=== PATIENT | female | born 1980 | race African-American/Black ===

== ENCOUNTER 2016-05-24 05:53 | Inpatient (IN) | payer BC, OTHER ==
[2016-05-24] VITALS (22 sets, daily range): BP systolic 108–148; RESP 14–25; TEMP 97.3–98.4; Ht 167.6 cm; Wt 97.5 kg
[~2016-05-24] VITALS: Ht 167.6 cm; Wt 97.5 kg
[~2016-05-24 05:53] MED LIST: CEFAZOLIN (LD/OB) 100 ML IV ONE; FAMOTIDINE 20 MG INJ IV ONE; LIDOCAINE 1% BUFFERED 1 ML SYR INTRADERM PRN; METOCLOPRAMIDE 10 MG/2 ML VIAL IV PUSH ONE
[2016-05-24] MEDS ORDERED: METOCLOPRAMIDE 10 MG/2 ML VIAL ONE ×2 (06:15→06:59)
[2016-05-24] MEDS ORDERED: FAMOTIDINE 20 MG INJ ONE ×2 (06:16→06:59)
[2016-05-24] MEDS ORDERED: CEFAZOLIN (LD/OB) 0 ML IV ONE (06:16)
[2016-05-24] MEDS: LACT RINGERS 1,000 ML IV SCH (06:21)
[2016-05-24] MEDS ORDERED: CEFAZOLIN (LD/OB) 100 ML IV ONE (07:00)
[2016-05-24] MEDS ORDERED: DIPHENHYDRAMINE 50 MG/ML VIAL IV PRN (07:45)
[2016-05-24] MEDS ORDERED: SALINE FLUSH 10 ML FLUSH PRN ×2 (07:45→08:50)
[2016-05-24] MEDS ORDERED: MEPERIDINE 25 MG/ML IV PRN (07:45)
[2016-05-24] MEDS ORDERED: PROMETHAZINE 25 MG/ML VIAL IV PRN (07:45)
[2016-05-24] MEDS ORDERED: BUTORPHANOL 1 MG/ML VIAL IV PRN (07:45)
[2016-05-24] MEDS ORDERED: DILAUDID 1 MG/ML AMP IV PRN (07:45)
[2016-05-24] MEDS ORDERED: ONDANSETRON 4 MG VIAL IV PRN ×3 (07:45→08:50)
[2016-05-24] MEDS ORDERED: NALOXONE 0.4 MG/ML AMP IV PRN (07:45)
[2016-05-24] MEDS ORDERED: MORPHINE 2 MG/ML SYR IV PRN ×2 (07:45)
[2016-05-24] MEDS ORDERED: MORPHINE 4 MG/ML SYR IV PRN ×2 (07:45)
[2016-05-24] MEDS ORDERED: OXYCODONE 5 MG TAB PO PRN (07:45)
[2016-05-24] MEDS ORDERED: TDaP 0.5 ML VIAL IM.VACC ONE (08:50)
[2016-05-24] MEDS ORDERED: MEASLES,MUMPS,RUBELLA VAC SUBQ.VACC ONE (08:50)
[2016-05-24] MEDS ORDERED: LACT RINGERS 1,000 ML IV SCH (08:50)
[2016-05-24] MEDS: KETOROLAC 30 MG/ML VIAL IV SCH ×2 (11:39→17:32)
[2016-05-24] MEDS: DOCUSATE SOD 100 MG CAP PO SCH (11:43)
[2016-05-24] MEDS ORDERED: OXYTOCIN 10 UNITS/ML VIAL IV ONE (14:00)
[2016-05-24] MEDS ORDERED: METOPROLOL 5 MG/5 ML VIAL IV ONE (14:00)
[2016-05-24] MEDS ORDERED: PHENYLEPHRINE 10 MG/ML VIAL IV ONE (14:00)
[2016-05-24] MEDS: SALINE FLUSH 10 ML FLUSH SCH ×2 (14:30→18:49)
[2016-05-24] MEDS: OXYTOCIN 15 UNITS/250 ML NS 250 ML IV SCH (20:15)
[2016-05-24] MEDS: MAG HYDROX 30 ML UDC PO PRN (21:48)
[2016-05-25] MEDS: KETOROLAC 30 MG/ML VIAL IV SCH ×2 (00:13→05:19)
[2016-05-25 01:21] VITALS: BP_SYST 136; RESP 16; TEMP 98.1
[2016-05-25] MEDS: LACT RINGERS 1,000 ML IV SCH (03:13)
[2016-05-25] MEDS: OXYTOCIN 15 UNITS/250 ML NS 250 ML IV SCH ×2 (03:14→07:02)
[2016-05-25 05:00] VITALS: BP_SYST 144; RESP 20; TEMP 98.1
[2016-05-25] MEDS: SODIUM CHLORIDE 0.9% FLUSH BAG 500 ML IV SCH (05:31)
[2016-05-25] MEDS ORDERED: SODIUM CHLORIDE 0.9% FLUSH BAG 500 ML IV SCH (06:00)
[2016-05-25] MEDS: SALINE FLUSH 10 ML FLUSH SCH ×3 (08:00→19:26)
[2016-05-25 09:07] VITALS: BP_SYST 138; TEMP 98.1
[2016-05-25 09:08] VITALS: RESP 16
[2016-05-25] MEDS: DOCUSATE SOD 100 MG CAP PO SCH (09:18)
[2016-05-25] MEDS: Ibuprofen 600 MG TAB PO SCH ×3 (12:07→23:54)
[2016-05-25] MEDS: MAG HYDROX 30 ML UDC PO PRN (12:10)
[2016-05-25 18:15] VITALS: BP_SYST 146; TEMP 98.4
[2016-05-25 18:16] VITALS: RESP 24
[2016-05-26 05:21] VITALS: BP_SYST 126; RESP 18; TEMP 98
[2016-05-26] MEDS: SODIUM CHLORIDE 0.9% FLUSH BAG 500 ML IV SCH (06:00)
[2016-05-26] MEDS: Ibuprofen 600 MG TAB PO SCH ×2 (06:04→12:19)
[2016-05-26] MEDS: SALINE FLUSH 10 ML FLUSH SCH (08:00)
[2016-05-26] MEDS: DOCUSATE SOD 100 MG CAP PO SCH (08:43)
[2016-05-26] MEDS: MAG HYDROX 30 ML UDC PO PRN (08:45)
[2016-05-26 09:33] VITALS: BP_SYST 116; RESP 16; TEMP 98.4
[2016-05-26 13:44] VITALS: BP_SYST 116; RESP 16; TEMP 98.4
== END 2016-05-26 14:23 | disposition home or self-care (01) | DRG 765 ==
LOC: LD 05:53 → OB 10:50
PROVIDERS: ADMIT Specialist; ATTEND Specialist
PROC: 10D00Z1 Extraction of Products of Conception, Low, Open Approach (ICD-10-PCS; principal; 2016-05-24)
PROC: 0UL70CZ Occlusion of Bilateral Fallopian Tubes with Extraluminal Device, Open Approach (ICD-10-PCS; 2016-05-24)
PROC: 10907ZC Drainage of Amniotic Fluid, Therapeutic from Products of Conception, Via Natural or Artificial Opening (ICD-10-PCS; 2016-05-24)
DX: O34.211 Maternal care for low transverse scar from previous cesarean delivery (principal); O10.92 Unspecified pre-existing hypertension complicating childbirth; Z3A.38 38 weeks gestation of pregnancy; Z37.0 Single live birth; O99.824 Streptococcus B carrier state complicating childbirth; O69.81X0 Labor and delivery complicated by cord around neck, without compression, not applicable or unspecified; Z30.2 Encounter for sterilization; O34.13 Maternal care for benign tumor of corpus uteri, third trimester; D25.9 Leiomyoma of uterus, unspecified
CPT/HCPCS: 80053; 82803; 85025; 86850; 86900; 86901; 88307